=== PATIENT | female | born 1955 | race Caucasian/White ===

== ENCOUNTER 2021-08-22 10:30 | Outpatient (CLI) | payer MEDICARE, BC, SELFPAY ==
--- NOTE | 2021-08-22 10:37 | MM_ITS ---
WS: [id number] BILATERAL DIGITAL SCREENING MAMMOGRAPHY WITH CAD CLINICAL INFORMATION: SCREENING HISTORY: Screening mammogram. No current complaints. COMPARISON: TECHNIQUE: Bilateral CC and MLO views. FINDINGS: The breasts are composed of heterogeneous fibroglandular density tissue, which can limit the detectio n of small underlying mass lesions. A few tiny punctate calcifications. Partially obscured ovoid dens ity upper outer right breast measuring 11 mm. Recommend right diagnostic mammography and ultrasound f or further evaluation. Left breast is unremarkable and unchanged. MM/[place] [id number] IMPRESSION: BI-RADS: 0-Incomplete: Need additional imaging evaluation FOLLOW UP: Need Additional Imaging Recommend right diagnostic mammography and ultrasound for further evaluation.
== END 2021-08-22 10:31 | disposition home or self-care (01) ==
LOC: RADSHAW 10:36
PROVIDERS: PCP Family Medicine; Visit Provider Family Medicine
DX: Z12.31 Encounter for screening mammogram for malignant neoplasm of breast (principal)
CPT/HCPCS: 77067

== ENCOUNTER 2021-09-06 08:20 | Outpatient (CLI) | payer MEDICARE, BC, SELFPAY ==
--- NOTE | 2021-09-06 08:39 | US_ITS ---
WS: [id number] RIGHT DIGITAL MAMMOGRAPHY WITH CAD CLINICAL INFORMATION: RT BREAST DENSITY COMPARISON: August 22, 2021 TECHNIQUE: 3 views of the right breast were obtained. FINDINGS: Scattered fibroglandular densities of the right breast. Partially obscured ovoid density upper outer right breast measuring 11 mm persists on spot compression views but is less well-defined. Ultrasound is pending. ULTRASOUND BREAST RIGHT TECHNIQUE: Ultrasound right breast focused area of concern. CLINICAL INFORMATION: RT BREAST DENSITY FINDINGS: Ultrasound right breast at the 9 to 12:00 position. There are no suspicious cystic or solid lesions. Dense underlying parenchymal tissue. No lesions to correspond to the mammographic findings. US/US breast RT limited* [id number] IMPRESSION: Recommend 6 month follow-up right diagnostic mammography to confirm stability. No corresponding lesions were seen on the ultrasound. BI-RADS: 3-Probably Benign FOLLOW UP: 6 Month Follow-up RECOMMEND 6 MONTH FOLLOW-UP RIGHT DIAGNOSTIC MAMMOGRAPHY AND ULTRASOUND IF PERS ISTENT
== END 2021-09-06 08:21 | disposition home or self-care (01) ==
LOC: RADSHAW 08:22
PROVIDERS: PCP Family Medicine; Visit Provider Family Medicine
DX: R92.8 Other abnormal and inconclusive findings on diagnostic imaging of breast (principal)
CPT/HCPCS: 76642; 77065

== ENCOUNTER 2021-09-16 15:02 | Outpatient (CLI) | payer MEDICARE, BC, SELFPAY ==
--- NOTE | 2021-09-16 15:33 | ECG_ITS ---
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
== END 2021-09-16 15:03 | disposition home or self-care (01) ==
LOC: RT 15:11
PROVIDERS: PCP Family Medicine; Visit Provider Specialist
DX: J38.3 Other diseases of vocal cords (principal)
CPT/HCPCS: 93005

== ENCOUNTER 2022-11-06 10:44 | Emergency (ER) | payer MEDICARE, SELFPAY ==
[2022-11-06] VITALS (11 sets, daily range): BP systolic 108–137; BP diastolic 54–78; PULSE 88–98; RESP 14–20; TEMP 36.7; O2SAT 94–99; BMI 21.6
--- NOTE | 2022-11-06 11:03 | XR_ITS ---
WS: [id number] XR chest 1V portable [id number] REASON FOR EXAM: headache vision changes, hx of cva FINDINGS: Moderate tortuosity and ectasia of the thoracic aorta. Normal heart size. Calcified granulomatous disease bilaterally. Increased reticular interstitial lung opacities in the left lower lung which may be chronic. No definite acute or subacute pulmonary parenchymal or pleural abnormalities. Thoracic scoliosis with mild to moderate degenerative spondylosis. XR/XR chest 1V portable [id number] IMPRESSION: Interstitial lung changes in the left lower lung as above. Appear chronic howev er chronicity is not certain and as clinically warranted follow-up PA and later al chest recommended.
--- NOTE | 2022-11-06 11:03 | CT_ITS ---
WS: [id number] CT HEAD NONCONTRAST HISTORY: headache vision changes, hx of cva TECHNIQUE: Contiguous axial imaging performed through the brain in 2.5 mm imaging. Bone and soft tiss ue windows. Sagittal and coronal reformats reviewed. All CT scans at [facility] use at least one of these dose optimization techniques: automated exposure control; mA and/or kV adjustment per pa tient size (includes targeted exams where dose is matched to clinical indication); or iterative recon struction. DLP: 1083.09 mGy.cm COMPARISON: None available. No acute intracranial hemorrhage, midline shift or mass effect. Mild atrophy and small vessel ischemic disease. Prior lacunar infarct RIGHT basal ganglia. Ventricles: Normal size with no hydrocephalus. No inferior displacement of the cerebellar tonsils. Paranasal sinuses: Mild mucoperiosteal thickening. Small air-fluid level LEFT sphenoid sinus. Mastoid air cells: Well pneumatized. Calvarium and scalp: No fracture. Calcification abuts the RIGHT frontal bone. This may be a calcified meningioma or bony exostosis measuring 10 x 8 mm. Atherosclerotic plaque intracranial carotid arteries. CT/CT head wo con* [id number] IMPRESSION: 1. No acute intracranial hemorrhage. 2. Mild atrophy and small vessel ischemic disease. 3. Small lacunar infarct RIGHT basal ganglia.
--- NOTE | 2022-11-06 11:03 | ED_ITS ---
HPI - Headache General: Chief Complaint: Headache Stated Complaint: SUDDEN HEADACHE/ NAUSEA/ DOUBLE VISION Time Seen by Provider: 11/06/22 10:48 History of Present Illness: Presents to the ER by EMS with complaints of sudden onset right-sided headache and vision changes. Patient reports this started approximately 4 AM today. Patient states her vision is double vision with objects moving in the left and right pattern this is when she looks anywhere other than looking down. When patient looks down she has normal vision. Patient has never had any complaints like this before. Patient has a history of a stroke approximately 10 years ago and is on no anticoagulation. Patient does report the headache worsens with light exposure. MD elicited complaint: headache (Vision changes) Onset (ago): hour(s) (7 hours ago) Onset description: suddenly Location: right Severity: moderate Quality & Timing: aching and constant Exacerbating factors: light Relieving factors: nothing Context: occurred at rest Associated symptoms: Reports photophobia and other (Vision changes); Deny chest pain, fever(s), nausea, rash or vomiting Review of Systems General: Reports: 10 or more systems reviewed and unremarkable except in HPI and below Const: Denies: fever(s) or chills Eyes: Reports: change in vision, blurry vision and photophobia ENMT: Reports: disequilibrium; Denies: throat pain or odynophagia Card: Denies: chest pain, palpitations or irregular heart rhythm Resp: Denies: dyspnea, productive cough or non-productive cough GI: Denies: abdominal pain, nausea or vomiting : Denies: flank pain or dysuria Musc: Denies: neck pain or back pain Skin/Breast: Denies: rash or pruritus Neuro: Reports: headache(s); Denies: numbness in extremities or weakness in extremities Psych: Denies: anxiety or depression Endo: Denies: polyuria or tired all the time Yusef/Lymph: Denies: easy bruising or easy bleeding All/Imm: Denies: urticaria or throat swelling PFSH ED PFSH: Medical History Arthritis Hypercholesteremia Lung nodule TIA (transient ischemic attack) Surgical History History of throat surgery Social History (Reviewed 11/06/22 @ 11:11 by MARYJO Marroquin Smoking and tobacco status: current every day smoker Physical Exam Const: COMMON NORMALS: no acute distress, average body habitus, patient oriented x3, no limitations, healthy appearing, alert and well nourished HENMT: COMMON NORMALS: normocephalic, atraumatic, hearing grossly normal bilaterally, external ears normal, Normal external nose present and moist oral mucous membranes HEAD & SCALP: normocephalic and atraumatic NOSE: Normal external nose present EXTERNAL EAR: Yes external ears normal Eye: COMMON NORMALS: Equal, round and reactive pupils present, EOMs intact bilaterally and conjunctivae normal CONJUNCTIVA: Yes conjunctivae normal PUPIL: Yes Equal, round and reactive pupils present DIRECT OPHTHALMOSCOPY: Yes photophobia Neck/C-Spine: COMMON NORMALS: full ROM, no lymphadenopathy, supple, no menin geal signs, no JVD and Thyroid normal THYROID: Thyroid normal Lymph: LYMPHATIC: no lymphadenopathy noted Chest: COMMONS NORMALS: normal inspection of the chest and normal palpation of entire chest wall Resp: COMMON NORMALS: normal respiratory effort, No retractions, No use of accessory muscles and clear to auscultation bilaterally AUSCULTATION: clear to auscultation bilaterally Cardio: COMMON NORMALS: no JVD, regular rate, regular rhythm, S1 normal heart sound present and S2 normal heart sound present RATE: regular rate RHYTHM: regular rhythm HEART SOUNDS: S1 normal heart sound present and S2 normal heart sound present GI: COMMON NORMALS: Normal to inspection, nondistended, normoactive bowel sounds present, Soft to palpation, non-tender, No hepatosplenomegaly present and no masses PALPATION: Yes Soft to palpation and Yes No hepatosplenomegaly present : COMMON NORMALS: Yes no CVA tenderness BLADDER/KIDNEY EXAM: Yes no CVA tenderness Back/Pelvis: COMMON NORMALS: no CVA tenderness, thoracic and lumbar spine normal to inspection, no thoracic nor lumbar tenderness and thoraco-lumbar ROM normal Extremity: GENERAL: Yes normal exam except as noted Neuro: COMMON NORMALS: patient oriented x3, CN's II-XII intact bilaterally, moves all extremities, no focal motor deficits and no sensory deficits noted SENSORIUM/ORIENTATION: Yes alert MENINGEAL SIGNS: Yes no meningeal signs Psych: COMMON NORMALS: mental status grossly normal, Normal thought process present, cooperative, normal affect, speech normal and activity/motor behavior normal SPEECH: Yes normal speech THOUGHT PROCESS: Normal thought process present Course Vital Signs: Vital signs: Vital Signs Temperature 98.1 F 11/06/22 10:48 Pulse Rate 98 11/06/22 13:30 Respiratory Rate 20 H 11/06/22 13:30 Blood Pressure 108/54 11/06/22 13:30 Pulse Oximetry 97 11/06/22 13:30 Oxygen Delivery Me thod 11/06/22 11:28 MDM - Headache Medical Decision Making Patient presents to the ER with complaints of right-sided headache with vision changes. This started approximately 4 AM today. Patient does not usually have headaches or vision changes like this. Patient took a meclizine this morning for her dizziness with no change. She also took a baby aspirin. Patient has had a history of strokes in the past. Patient had blood work, urinalysis, chest x-ray, and head CT, these were all relatively benign and the findings were discussed with the patient. Patient was given 1 dose of Imitrex IV. Patient states her headache is almost all the way gone and her vision is almost back to normal. Patient states she is ready to go home as long as she can have some but medicine to go home. Patient will be discharged home with instructions to follow-up with her PCP and prop attendant for more thorough eye exam. Differential Diagnosis Likely migraine, tension headache and headache; Unlikely subarachnoid hemorrhage, meningitis, sinusitis or postconcussion syndrome Lab Data 11/06/22 11:00 11/06/22 11:00 Radiology Impressions Chest X-Ray 11/06/22 11:03 IMPRESSION: Interstitial lung changes in the left lower lung as above. Appear chronic however chronicity is not certain and as clinically warranted follow-up PA and lateral chest recommended. Head CT 11/06/22 11:03 IMPRESSION: 1. No acute intracranial hemorrhage. 2. Mild atrophy and small vessel ischemic disease. 3. Small lacunar infarct RIGHT basal ganglia. Laboratory Results WBC 3.6 10^3/uL (4.0-10.0) L 11/06/22 11:00 RBC 4.17 10^6/uL (4.1-5.3) 11/06/22 11:00 Hgb 12.9 g/dL (11.5-15.3) 11/06/22 11:00 Hct 38.9 % (37.0-47.0) 11/06/22 11:00 MCV 93.3 fl (81-99) 11/06/22 11:00 MCH 30.9 pg (28.0-34.0) 11/06/22 11:00 MCHC 33.2 g/dL (30.0-36.0) 11/06/22 11:00 RDW 13.3 % (12.1-15.1) 11/06/22 11:00 Plt Count 171 10^3/cmm (130-400) 11/06/22 11:00 MPV 9.7 fL (7.4-10.4) 11/06/22 11:00 Neut % (Auto) 72.5 % 11/06/22 11:00 Lymph % (Auto) 19.7 % 11/06/22 11:00 [facility] % (Auto) 6.7 % 11/06/22 11:00 Eos % (Auto) 0.8 % 11/06/22 11:00 Baso % (Auto) 0.3 % 11/06/22 11:00 Neut # (Auto) 2.58 10^3/uL (1.8-7.7) 11/06/22 11:00 Lymph # (Auto) 0.7 10^3/uL (0.8-4.8) L 11/06/22 11:00 [facility] # (Auto) 0.2 10^3/uL (0.2-0.9) 11/06/22 11:00 Eos # (Auto) 0.0 10^3/uL (0.0-0.8) 11/06/22 11:00 Baso # (Auto) 0.0 10^3/uL (0.0-0.1) 11/06/22 11:00 Nucleated RBC % (auto) 0 % 11/06/22 11:00 Nucleated RBCs # 0.0 /100WBC 11/06/22 11:00 ESR 7 mm/hr (0-15) 11/06/22 11:00 PT 12.50 SECONDS (12.1-14.9) 11/06/22 11:00 INR 0.91 (0.8-1.2) 11/06/22 11:00 Sodium 133 mmol/L (136-145) L 11/06/22 11:00 Potassium 3.6 mmol/L (3.5-5.1) 11/06/22 11:00 Chloride 99 mmol/L (98-107) 11/06/22 11:00 Carbon Dioxide 23 mmol/L (22-29) 11/06/22 11:00 Anion Gap 14.6 (5-19) 11/06/22 11:00 BUN 10 mg/dL (8-23) 11/06/22 11:00 Creatinine 0.6 mg/dL (0.5-0.9) 11/06/22 11:00 GFR Calculation 99.4 mL/min (90-130) 11/06/22 11:00 Glucose 163 mg/dL (65-115) H 11/06/22 11:00 Calculated Osmolality 279 mOsm/kg (285-295) L 11/06/22 11:00 Calcium 9.0 mg/dL (8.5-10.5) 11/06/22 11:00 Magnesium 1.9 mg/dL (1.7-2.3) 11/06/22 11:00 Total Bilirubin 0.3 mg/dL (0.15-1.2) 11/06/22 11:00 AST 20 U/L (0-32) 11/06/22 11:00 ALT 11 U/L (0-33) 11/06/22 11:00 Alkaline Phosphatase 40 U/L (35-105) 11/06/22 11:00 C-React Prot High Sens < 0.150 mg/dL (0.0-0.3) 11/06/22 11:00 Total Protein 6.7 g/dL (6.6-8.7) 11/06/22 11:00 Albumin 4.2 g/dL (3.5-5.2) 11/06/22 11:00 Globulin 2.5 g/dL (1.3-4.6) 11/06/22 11:00 Urine Color Yellow (Yellow) 11/06/22 12:36 Urine Appearance Clear (CLEAR) 11/06/22 12:36 Urine pH 6 (5-7) 11/06/22 12:36 Ur Specific [place] 1.010 (1.005-1.030) 11/06/22 12:36 Urine Protein Neg (Negative) 11/06/22 12:36 Urine Glucose (UA) Norm (Normal) 11/06/22 12:36 Urine Ketones Negative (Negative) 11/06/22 12:36 Urine Blood Neg (Negative) 11/06/22 12:36 Urine Nitrate Negative (Negative) 11/06/22 12:36 Urine Bilirubin Neg (Negative) 11/06/22 12:36 Urine Urobilinogen Norm mg/dL (Negative) 11/06/22 12:36 Ur Leukocyte Esterase Negative (Negative) 11/06/22 12:36 EKG Data EKG 1: I personally reviewed and interpreted this EKG as follows: EKG interpretation date: 11/06/22 EKG interpretation time: 11:19 Prior EKG tracings: not available for review Interpretation: EKG shows normal sinus rhythm, ventricular rate of 70 bpm, VA interval 181, QRS duration of 89 and a QTc of 399, no ST-T wave changes Discharge Plan Discharge Patient Disposition: Home Clinical Impression: Migraine Qualifiers: Migraine type: ophthalmoplegic Intractability: not intractable Qualified Code(s): G43.B0 - Ophthalmoplegic migraine, not intractable Condition: Stable Prescriptions: New Imitrex 50 mg tablet See Rx Instructions .ROUTE .COMPLEX Qty: 10 0RF Rx Instructions: take 1 tab at onset of headache; if no relief may repeat 1 tab after at least 2 hrs; max = 4 tabs/24 hr No Action Dulera 200-5 mcg/actuation HFA aerosol inhaler 2 puff inhalation BID PRN (Reason: Shortness Of Breath Or Wheezing) budesonide-formoterol [Symbicort] 160-4.5 mcg/actuation HFA aerosol inhaler 2 puff inhalation BID PRN (Reason: Shortness Of Breath Or Wheezing) simvastatin 40 mg tablet 40 mg PO DAILY sulfasalazine 500 mg tablet 1,000 mg PO BID Rx Instructions: give with food (meal/snack) meloxicam 15 mg tablet 15 mg PO DAILY tizanidine 4 mg capsule 4 mg PO TID PRN (Reason: Muscle Spasm) Discharge Orders: Discharge ED (Routine); Ordered 11/06/22 Ordered By: Rambo Padilla Referrals: Florin Crowe MD [Primary Care Provider] - 1 week Discharge Activity: Increase activity as tolerated Patient Instructions: Migraine Headache (ED), Ocular Migraine (ED) Coding Level of Care Code ED Product Support Representative for Chg Wallace
[2022-11-06] MEDS: SUMAtriptan 6 mg/0.5 mL SDV SUBCUT (11:17)
--- NOTE | 2022-11-06 11:19 | ECG_ITS ---
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 Measurements Intervals [place] Rate: 78 P: 151 NV: 181 QRS: 127 QRSD: 89 T: 150 QT: 366 QTc: 418 Interpretive Statements SINUS RHYTHM ARM LEADS REVERSED [INVERTED P AND QRS IN I] Compared to ECG 09/16/2021 15:32:59 No significant changes Electronically Signed On 11-06-2022 13:05:35 CDT by Bakari Barrios M.D. [id number]
[2022-11-06 11:23] LABS: Basophils % 0.3 %; Eosinophils % 0.8 %; Hematocrit 38.9 % (37.0-47.0); Hemoglobin 12.9 g/dL (11.5-15.3); Lymphocytes # 0.7 10^3/uL (0.8-4.8); Lymphocytes % 19.7 %; Mean Corpuscular HGB Conc 33.2 g/dL (30.0-36.0); Mean Corpuscular Hemoglobin 30.9 pg (28.0-34.0); Mean Corpuscular Volume 93.3 fl (81-99); Mean Platelet Volume 9.7 fL (7.4-10.4); Monocytes # 0.2 10^3/uL (0.2-0.9); Monocytes % 6.7 %; Neutrophils # 2.58 10^3/uL (1.8-7.7); Neutrophils % 72.5 %; Nucleated Red Blood Cells % 0 %; Platelet Count 171 10^3/cmm (130-400); Red Blood Count 4.17 10^6/uL (4.1-5.3); Red Cell Distribution Width 13.3 % (12.1-15.1); White Blood Count 3.6 10^3/uL (4.0-10.0)
[2022-11-06 11:26] LABS: Erythrocyte Sedimentation Rate 7 mm/hr (0-15)
[2022-11-06 11:38] LABS: INR 0.91 (0.8-1.2)
[2022-11-06 11:47] LABS: Alanine Aminotransferase 11 U/L (0-33); Albumin Level 4.2 g/dL (3.5-5.2); Alkaline Phosphatase 40 U/L (35-105); Anion Gap 14.6 (5-19); Aspartate Amino Transferase 20 U/L (0-32); Blood Urea Nitrogen 10 mg/dL (8-23); Carbon Dioxide 23 mmol/L (22-29); Chloride 99 mmol/L (98-107); Creatinine Clr Calc Pharmacy 61.3985; Globulin 2.5 g/dL (1.3-4.6); Glomerular Filtration Rate 99.4 mL/min (90-130); Glucose 163 mg/dL (65-115); Magnesium 1.9 mg/dL (1.7-2.3); Osmolality Calculated 279 mOsm/kg (285-295); Potassium 3.6 mmol/L (3.5-5.1); Sodium 133 mmol/L (136-145); Total Bilirubin 0.3 mg/dL (0.15-1.2); Total Protein 6.7 g/dL (6.6-8.7)
[2022-11-06 12:19] LABS: CRP High Sensitivity Cardiac < 0.150 mg/dL (0.0-0.3)
[2022-11-06 12:40] LABS: Add Urine Microscopic? NO; Charge for UA Resulting for Rev
[2022-11-06 13:00] LABS: Urine Color Yellow (Yellow)
[2022-11-06 13:01] LABS: Bilirubin Urine Neg (Negative); Blood Urine Neg (Negative); Glucose Urine UA Norm (Normal); Ketones Urine Negative (Negative); Leukocyte Esterase Urine Negative (Negative); Nitrate Urine Negative (Negative); Protein Urine Neg (Negative); Urine Appearance Clear (CLEAR); Urobilinogen Urine Norm (Negative); pH Urine 6 (5-7)
== END 2022-11-06 13:31 | disposition home or self-care (01) ==
PROVIDERS: Emergency Provider Emergency Medicine; PCP Family Medicine
DX: G43.B0 Ophthalmoplegic migraine, not intractable (principal); Z86.73 Personal history of transient ischemic attack (TIA), and cerebral infarction without residual deficits; F17.210 Nicotine dependence, cigarettes, uncomplicated
CPT/HCPCS: 70450; 71045; 80053; 81003; 83735; 85025; 85610; 85651; 86141; 93005; 96372; 99285; J3030

== ENCOUNTER → 2022-12-14 12:57 | Outpatient (BNVA) | payer MEDICARE, SELFPAY | PROVIDERS: PCP Family Medicine; Visit Provider Dermatology | DX: L57.0 Actinic keratosis (principal); L81.4 Other melanin hyperpigmentation; L57.8 Other skin changes due to chronic exposure to nonionizing radiation; L82.1 Other seborrheic keratosis | CPT/HCPCS: 17000; 17003; 99213 ==

== ENCOUNTER 2023-05-17 14:12 | Outpatient (CLI) | payer MEDICARE, SELFPAY ==
--- NOTE | 2023-05-17 14:18 | XR_ITS ---
WS: [id number] DEXA (DUAL ENERGY X-RAY ABSORPTIOMETRY) Bone mineral density was performed using a [employer] machine. HISTORY: POSTMENOPAUSAL COMPARISON: None available. Left forearm BMD: 0.748 g/cm2. T score: -1.5 Z score: 0.3 Total hip BMD: Left: 0.788 g/cm2. T score: -1.7 Z score: -0.4 Right: 0.792 g/cm2. T score: -1.7 Z score: -0.4 10 year probability of a major osteoporotic fracture is 20.3%. IMPRESSION: OSTEOPENIA based upon the WHO classification for females.
== END 2023-05-17 14:13 | disposition home or self-care (01) ==
PROVIDERS: PCP Family Medicine; Visit Provider Nurse Practitioner Family
DX: Z78.0 Asymptomatic menopausal state (principal); M85.80 Other specified disorders of bone density and structure, unspecified site
CPT/HCPCS: 77080

== ENCOUNTER → 2023-05-29 09:44 | Outpatient (BNVA) | payer MEDICARE, SELFPAY | PROVIDERS: PCP Family Medicine; Visit Provider Physician Assistant | DX: M19.041 Primary osteoarthritis, right hand; M19.042 Primary osteoarthritis, left hand | CPT/HCPCS: 73130; 99203 ==

== ENCOUNTER → 2023-06-18 12:46 | Outpatient (BNVA) | payer MEDICARE, SELFPAY | PROVIDERS: PCP Family Medicine; Visit Provider Dermatology | DX: L57.0 Actinic keratosis (principal); L81.4 Other melanin hyperpigmentation; L57.8 Other skin changes due to chronic exposure to nonionizing radiation; L82.1 Other seborrheic keratosis; D22.39 Melanocytic nevi of other parts of face | CPT/HCPCS: 17000; 17110; 99213 ==

== ENCOUNTER → 2023-06-22 10:41 | Outpatient (BNVA) | payer MEDICARE, SELFPAY | PROVIDERS: PCP Family Medicine; Visit Provider Student in an Organized Health Care Education/Training Program | DX: M19.041 Primary osteoarthritis, right hand (principal); M19.042 Primary osteoarthritis, left hand | CPT/HCPCS: 99214 ==

== ENCOUNTER 2023-08-15 10:02 | Day surgery (SDC) | payer MEDICARE, SELFPAY ==
[2023-08-15] VITALS (10 sets, daily range): BP systolic 110–175; BP diastolic 70–106; PULSE 70–102; RESP 16–18; TEMP 36.1–36.6; O2SAT 94–99; BMI 25.0
--- NOTE | 2023-08-15 | XR_ITS ---
WS: [email or web address] XR finger RT min 2V [id number] REASON FOR EXAM: right thumb distal interphalangeal arthrodesis, or pic FINDINGS: Longitudinal and screw arthrodesis of the DIP joint of the right thumb. The surgical appliances intact and in proper position and alignment. Arthrodesis is in proper alignment. IMPRESSION: Arthrodesis of the DIP joint of the right thumb.
--- NOTE | 2023-08-15 10:54 | ECG_ITS ---
[facility] Test Date: 2023-08-15 Pat Name: Heidi Shafer Department: Room: Gender: Female Rn Outpatient Surgery: : 1955 Requested By: Melony Centeno Order Number: [id number] Zoltan MD: Bakari Barrios M.D. Measurements Intervals [place] Rate: 73 P: 68 MD: 171 QRS: 27 QRSD: 90 T: 58 QT: 397 QTc: 440 Interpretive Statements SINUS RHYTHM Compared to ECG 11/06/2022 11:19:44 No significant changes Electronically Signed On 08-15-2023 19:00:23 PRIMER CHARGER by Bakari Barrios M.D. [email or web address] [id number]
[2023-08-15] MEDS: albuterol 2.5 mg/3 mL Neb INHALATION (11:00)
[2023-08-15] MEDS: ipratropium 0.5 mg/2.5 mL Neb INHALATION (11:00)
[2023-08-15] MEDS: acetaminophen 1,000 MG/100 ML PIGGYBACK 400 MG IV (11:08)
--- NOTE | 2023-08-15 11:09 | ANES.PREANE2 ---
Pre-Anesthetic Assessment Height/Weight: Height 1.65 m Weight 68.039 kg Temp Pulse Resp BP Pulse Ox O2 Del Method 97.7 F 70 16 122/70 94 Room Air 08/15/23 10:44 08/15/23 11:04 08/15/23 10:50 08/15/23 10:44 08/15/23 10:50 08/15/23 10:50 Operation Date: 08/15/23 12:05 Proposed Procedures p Right Thumb Distal Interphalangeal Arthrodesis Hand(Right) - Remy Screven, DO Was Beta Kenton taken within 24 hours: N/A Was Clonidine taken within 24 hours: N/A Last intake: Intake Last Liquid Date 08/14/23 Last Liquid Time 19:00 Last Solid Date 08/14/23 Last Solid Time 18:00 Exam alert and oriented x 3 Airway Submandibular: within normal limits Cervical ROM: within normal limits Mallampati: Class II Dentition: other Comments: Comments: Implants, prefers to keep them in place History/ROS No significant history except as noted and No significant complaints Pulmonary Chronic Obstructive Pulmonary Disease Metabolic Hyperlipidemia Anesthetic Plan ASA status: 2 Anesthesia: General Risk of > 500 ml blood loss (7ml/kg in children): No Medications/Allergies Home Medications Medication Instructions Recorded Confirmed Last Taken Type budesonide-formoterol HFA 160 2 puff inhalation BID PRN 10/27/21 08/14/23 Unknown History mcg-4.5 mcg/actuation aerosol Shortness Of Breath Or Wheezing inhaler (Symbicort) simvastatin 40 mg tablet 40 mg PO DAILY 10/27/21 08/14/23 08/14/23 History sulfasalazine 500 mg tablet 1,000 mg PO BID 10/27/21 08/14/23 08/14/23 History meloxicam 15 mg tablet 15 mg PO DAILY 11/06/22 08/14/23 08/14/23 History tizanidine 4 mg capsule 4 mg PO TID PRN Muscle Spasm 11/06/22 08/14/23 08/14/23 History clobetasol 0.05 % scalp solution 1 applic topical BID 2 weeks #50 mL 11/07/22 08/14/23 08/14/23 Rx imiquimod 5 % topical cream packet 1 applic topical ONCE #24 ea 11/14/22 08/15/23 08/14/23 Rx cholecalciferol (vitamin D3) 125 125 mcg PO DAILY 05/29/23 08/14/23 08/14/23 History mcg (5,000 unit) capsule magnesium oxide 400 mg PO DAILY 05/29/23 08/14/23 08/14/23 History meclizine 25 mg tablet 25 mg PO DAILY PRN Dizziness 05/29/23 08/15/23 08/15/23 History prednisone 20 mg tablet 20 mg PO DAILY 05/29/23 08/15/23 08/14/23 History Allergies Allergy/AdvReac Type Severity Reaction Status Date / Time No Known Drug Allergies Allergy none Verified 08/14/23 11:53 [facility] Anesthesia Medical History Arthritis Hypercholesteremia Lung nodule TIA (transient ischemic attack) Surgical History History of throat surgery Social History Smoking and tobacco/nicotine status: current every day tobacco/nicotine user Data Anesthesia Cardiac Studies: No Data to Display
[2023-08-15] MEDS: sodium chloride 0.9% 1,000 ML 30 ML IV (11:10)
[2023-08-15] MEDS: ketorolac 30 mg/mL INJ IVP (11:17)
--- NOTE | 2023-08-15 11:36 | W.PM.OPSFHP ---
Same Day Surgery H&P Indication for Procedure/HPI DATE OF PROCEDURE: August 15, 2023 CHIEF COMPLAINT/INDICATIONFOR SURGICAL PROCEDURE: Right thumb IP joint arthritis and deformity PREOP DIAGNOSIS: Right thumb IP joint arthritis and deformity PLANNED PROCEDURE: Operation Date: 08/15/23 12:05 Proposed Procedures p Right Thumb Distal Interphalangeal Arthrodesis Hand(Right) - Remy Noe DO Medications/Allergies* Home Medications Medication Instructions Recorded Confirmed Type budesonide-formoterol HFA 160 2 puff inhalation BID PRN 10/27/21 08/14/23 History mcg-4.5 mcg/actuation aerosol Shortness Of Breath Or Wheezing inhaler (Symbicort) simvastatin 40 mg tablet 40 mg PO DAILY 10/27/21 08/14/23 History sulfasalazine 500 mg tablet 1,000 mg PO BID 10/27/21 08/14/23 History meloxicam 15 mg tablet 15 mg PO DAILY 11/06/22 08/14/23 History tizanidine 4 mg capsule 4 mg PO TID PRN Muscle Spasm 11/06/22 08/14/23 History cholecalciferol (vitamin D3) 125 125 mcg PO DAILY 05/29/23 08/14/23 History mcg (5,000 unit) capsule magnesium oxide 400 mg PO DAILY 05/29/23 08/14/23 History meclizine 25 mg tablet 25 mg PO DAILY PRN Dizziness 05/29/23 08/15/23 History prednisone 20 mg tablet 20 mg PO DAILY 05/29/23 08/15/23 History Allergies/Adverse Reactions Allergy/AdvReac Type Severity Reaction Status Date / Time No Known Drug Allergies Allergy none Verified 08/14/23 11:53 Current Medications: Generic Name Dose Route Start Last Admin Trade Name Freq PRN Reason Stop Dose Admin Sodium Chloride 1,000 mls @ 30 mls/hr 08/15/23 10:30 08/15/23 11:10 Sodium Chloride 0.9% IV 08/16/23 10:29 30 mls/hr .Q24H BERTO Administration Pertinent History/Comorbid Conditions* Medical History (Updated 05/29/23 @ 10:34 by LEXUS Boyce) Lung nodule TIA (transient ischemic attack) Arthritis Hypercholesteremia Surgical History (Updated 10/31/21 @ 16:50 by Renae Raphael DO) History of throat surgery Social History Smoking and tobacco/nicotine status: current every day tobacco/nicotine user Pertinent Exam Findings alert, oriented x 3, operative site marked and procedure specific exam findings Hands-Patient has significant osteoarthritis of both hands. no erythema or warmth of joints or fingers. Patient has tenderness of the DIP joints on thumb and fifth digit of finger. She has deformity of distal phalanx on right thumb that appears dislocated And angled 90 degrees. Joint is able to be near reducibly and straight clinically on exam. And bony prominence first digit metacarpal. fingers are warm and well-perfused. Recommendations Surgery/Procedure today Other Plans: Plan to proceed to the OR today for right thumb IP joint arthrodesis. Patient understands and Zetts procedure risk benefits complication alternatives surgery and through shared decision-making elects proceed with surgical intervention all questions answered. Coding Level of Care Code Acute Code for Kb Fwandres
[2023-08-15] MEDS: midazolam 1 mg/mL INJ 2 mL 2 MG IVP (12:52)
[2023-08-15] MEDS: ceFAZolin 2,000 MG in sodium chloride 0.9% (plus) 50 ML 100 MG IV (13:34)
[2023-08-15] MEDS: ROPivacaine 0.5% SDV 30 mL 25 MG INJECTION (14:39)
[2023-08-15] MEDS: lidocaine 2% INJ 20 mL INJECTION (14:39)
--- NOTE | 2023-08-15 15:02 | W.PM.BPON ---
Date of Procedure: 08/15/2023 Surgeon: Remy Noe DO Patient Case Manager(s): Andi Noe PA-C Procedure(s) performed: Right thumb interphalangeal joint arthrodesis Findings of the procedure(s): [Patient found to have significant joint arthritis of the right thumb interphalangeal joint with significant 90 degree deformity, patient underwent procedure as planned without complications.] Estimated blood loss: 5 mL Specimen(s) removed: None Post-operative diagnosis: Right thumb IP joint severe degenerative joint disease/arthritis and 90 degrees deformity
--- NOTE | 2023-08-15 15:05 | PM.PACU ---
PACU note Narrative: Patient is a 67-year-old female just underwent a right thumb interphalangeal arthrodesis patient transferred to PACU in stable condition. Pain is well controlled. Dressing and splint on hand is dry and in place. Patient's fingers are warm and well-perfused and checked before splint was put on. Patient can wiggle fingers. normal cap refill under 2 seconds. Patient has normal elbow range of motion. Unable to assess sensation due to residual localized anesthetic. Exam: awake Disposition: discharged
--- NOTE | 2023-08-15 15:06 | P.OP_ITS ---
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 Anesthesia: General (LMA) Estimated blood loss: 5 mL 43 minutes IV fluids: 700 mL Complications: None Findings: See operative report narrative Condition: stable Disposition: same day Brief History: Patient seen and worked up in the outpatient setting she has significant arthritis of her hands with a 90 degree deformity and severe arthritis of the right thumb interphalangeal joint talked about her treatment options far as nonoperative and operative invention. Through shared decision making given she is failed conservative treatment is starting to affect her daily life and function she like to undergo surgical intervention recommend a right thumb interphalangeal joint arthrodesis. She understands the ins and outs procedure risk benefits complication alternatives surgery through shared decision make elects proceed with surgical intervention. All questions answered. Procedure: Patient seen eval in the preoperative holding area. Consent was reviewed and signed with patient correct extremity and digit was marked she was seen evaluate by anesthesia preoperatively and was cleared for surgery she was taken back to the operative suite [facility]. Armboard was applied to the right upper extremity. Patient then subsequently underwent anesthesia per the anesthesia part once properly anesthetized she was apparently well-padded and secured to the bed. Nonsterile tourniquet applied to the right upper arm. She then subsequently was prepped and draped the right upper extremity in standard orthopedic fashion. Final timeout performed. Patient received appropriate preoperative antibiotics. A sterile digital block was then subsequently performed of the right thumb as a digital block for anesthetic and postoperative pain. Esmarch tourniquet was used exsanguinate right upper extremity and tourniquet was insufflated to 250 mmHg. First brought in mini C arm to evaluate the thumb IP joint this is not completely reducible and still had radial deviation as result plan was to make an eponychial curved incision over the bony prominence of the proximal phalanx. This curvilinear incision was made through skin only and then switched to Littler dissection scissors and dissected full-thickness skin flaps. Sharp scalpel incision was made to mobilize on the radial and ulnar aspects of the extensor tendon I then appropriately released the collaterals in sequential fashion protected neurovascular structures throughout my dissection. I then subsequently made an arthrotomy and identified the distal interphalangeal joint. This point in time my assistant executive housekeeper held retractors to protect the proximal phalanx and I utilized some microsagittal saw and subsequently created a flat surface with slight flexion of the proximal phalanx to accommodate and prepped the bone surface for arthrodesis. Next I utilized a curette as well as a rongeur and fenestrated multiple holes of the distal phalanx to prep the distal phalanx for arthrodesis. I then subsequently utilized the mini C arm to verify appropriate 5-10 degrees of flexion of the IP joint for appropriate position perfusing. Small adjustments and bone fragments were subsequently excised to accommodate for appropriate 5 to 10 degrees of flexion for the arthrodesis. I then subsequently advanced K wire across the distal interphalangeal joint of the proximal phalanx maintaining my reduction appropriate bony apposition with holding the finger in straight alignment with no clinical radiographic deviation radially or ulnarly. Once confirmed my K wire was in appropriate position and site was prepped for arthrodesis with appropriate joint preparation I then subsequently took appropriate measurement 38 mm was noted for the appropriate length screw with a 2.5 mm Arthrex headless compression screw. I then subsequently drilled and then placed a 38 mm x 2.5 mm Arthrex headless compression screw with excellent fixation and compression with appropriate maintenance of reduction and joint compression across the interphalangeal joint. This point time the K wire subsequently removed. Subsequently utilized Crucell DBM putty at the site of the arthrodesis to encourage bony fusion. Finger was then subsequently ranged through motion and had excellent fixation at the DIP joint with supple motion at the adjacent joints of the right thumb. Tourniquet was deflated hemostasis was satisfactory patient had brisk capillary refill of the right thumb. I then subsequently excised some of patient's excessive skin edges given the chronic deformity that she had had initial the skin edges were then reapproximated with interrupted nylon suture. Patient was then dressed with Xeroform 4 x 4's Curlex soft roll and a thumb spica splint was applied. She was awakened from anesthesia and taken back in stable condition. Disposition: Patient taken back in stable condition recovering well pain controlled. Will maintain thumb spica splint until follow-up. Follow-up in 2 weeks to receive appropriate discharge structure as well as pain medication. Patient understands agrees with current plan. Questions answered.
--- NOTE | 2023-08-16 07:25 | ANE.PACU2 ---
Inpatient post-anesthesia follow up: Airway intact: Yes Vital signs: Temperature 98 F Pulse Rate 88 Respiratory Rate 17 Blood Pressure 168/90 Pulse Oximetry 98 Oxygen Delivery Me thod Room Air Oxygen Flow Rate Fraction of Inspir ed Oxygen Hydration adequate: Yes Nausea and vomiting: No Pain level: 3 Mental status: Baseline
== END 2023-08-15 16:20 | disposition home or self-care (01) ==
PROVIDERS: PCP Family Medicine; Visit Provider Student in an Organized Health Care Education/Training Program
PROC: (CPT 26860; principal; 2023-08-15 12:05)
DX: M13.841 Other specified arthritis, right hand (principal); J44.9 Chronic obstructive pulmonary disease, unspecified; E78.5 Hyperlipidemia, unspecified; E78.00 Pure hypercholesterolemia, unspecified; Z86.73 Personal history of transient ischemic attack (TIA), and cerebral infarction without residual deficits; F17.210 Nicotine dependence, cigarettes, uncomplicated
CPT/HCPCS: 26860; 73140; 76000; 93005; 94640; C1713; C1734; J0131; J0690; J1885; J2250; J2704; J2795; J3010; J3490; J7030; J7613; J7644

== ENCOUNTER 2023-08-28 06:00 | Outpatient (CLI) | payer MEDICARE, SELFPAY | END 2023-08-28 06:01 | LOC: SOT 08-29 10:33 | PROVIDERS: Visit Provider Physician Assistant | DX: Z47.89 Encounter for other orthopedic aftercare (principal) | CPT/HCPCS: 97760; 99024; L3925 ==

== ENCOUNTER → 2023-08-28 11:17 | Outpatient (BNVA) | payer MEDICARE, SELFPAY | PROVIDERS: PCP Family Medicine; Visit Provider Physician Assistant | DX: Z98.890 Other specified postprocedural states (principal); M19.041 Primary osteoarthritis, right hand; M19.042 Primary osteoarthritis, left hand; Z47.89 Encounter for other orthopedic aftercare | CPT/HCPCS: 73130; 97760; 99024; L3925 ==

== ENCOUNTER → 2023-10-09 13:46 | Outpatient (BNVA) | payer MEDICARE, SELFPAY | PROVIDERS: Visit Provider Student in an Organized Health Care Education/Training Program | DX: M19.041 Primary osteoarthritis, right hand (principal); M19.042 Primary osteoarthritis, left hand | CPT/HCPCS: 73130; 99213 ==

== ENCOUNTER → 2023-12-17 11:09 | Outpatient (BNVA) | payer MEDICARE, SELFPAY | PROVIDERS: Visit Provider Nurse Practitioner Family | DX: D48.5 Neoplasm of uncertain behavior of skin (principal); L81.4 Other melanin hyperpigmentation; L82.1 Other seborrheic keratosis; D22.39 Melanocytic nevi of other parts of face; L82.0 Inflamed seborrheic keratosis; L57.0 Actinic keratosis | CPT/HCPCS: 11102; 17000; 99213 ==

== ENCOUNTER → 2024-01-16 11:21 | Outpatient (BNVA) | payer MEDICARE, SELFPAY | PROVIDERS: Visit Provider Dermatology | DX: L57.0 Actinic keratosis (principal) | CPT/HCPCS: 96573 ==

== ENCOUNTER → 2024-02-20 07:51 | Outpatient (BNVA) | payer MEDICARE, SELFPAY | PROVIDERS: Visit Provider Dermatology | DX: L57.0 Actinic keratosis (principal) | CPT/HCPCS: 96573; J7308 ==

== ENCOUNTER → 2024-05-22 08:44 | Outpatient (BNVA) | payer MEDICARE, SELFPAY | PROVIDERS: Visit Provider Nurse Practitioner Family | DX: L57.0 Actinic keratosis (principal); I78.8 Other diseases of capillaries; L81.4 Other melanin hyperpigmentation; L57.8 Other skin changes due to chronic exposure to nonionizing radiation | CPT/HCPCS: 17000; 99213 ==

== ENCOUNTER → 2024-06-12 14:39 | Outpatient (BNVA) | payer MEDICARE, SELFPAY | PROVIDERS: PCP Family Medicine; Visit Provider Orthopaedic Surgery | DX: M54.9 Dorsalgia, unspecified (principal) | CPT/HCPCS: 72072; 99204 ==

== ENCOUNTER 2024-06-16 14:39 | Outpatient (CLI) | payer MEDICARE, SELFPAY ==
--- NOTE | 2024-06-16 15:15 | MR_ITS ---
WS: [id number] MRI THORACIC SPINE WITHOUT CONTRAST TECHNIQUE: Sagittal T1, T2 and STIR imaging. Axial T2 imaging. Noncontrast imaging obtained. CLINICAL INFORMATION: compression fx thoracic COMPARISON: None. FINDINGS: Counting performed from the craniocervical junction 6 6 Mild thoracic curve. Moderate thoracic kyphosis. Compression fracture T7 vertebral body with anterior wedging. Loss of approximately 40% vertebral body height. Fracture cleft in the mid vertebral body e xtending to the superior endplate and posterior cortex. No significant retropulsion. Small amount of edema extending into the LEFT greater than RIGHT pedicles. Pedicles appear intact. Tiny LEFT paracent ral protrusion T7-T8. Spinal canal is patent. Cord signal is normal. No high-grade central canal stenosis. Chronic disc bulging in the lower thorac ic and upper lumbar spine worse at T12-L1 and L1-L2 with disc desiccation. Moderate facet arthropathy lower thoracic spine. Normal caliber visualized thoracic aorta. Osteopenia. MR/MR thoracic spin wo con* [id number] IMPRESSION: 1. Acute compression T7 vertebral body with fracture cleft visualized in the s uperior endplate extending into the posterior cortex. Loss of approximately 40% vertebral body height with edema. No significant retropulsion. 2. Small LEFT paracentral protrusion T7-T8. Spinal canal is patent. 3. No other acute appearing compression fractures. 4. Moderate spondylitic changes thoracic spine with moderate thoracic kyphosis .
== END 2024-06-16 14:40 | disposition home or self-care (01) ==
LOC: RAD 14:39
PROVIDERS: PCP Family Medicine; Visit Provider Orthopaedic Surgery
DX: S22.060A Wedge compression fracture of T7-T8 vertebra, initial encounter for closed fracture (principal); M51.24 Other intervertebral disc displacement, thoracic region; M47.814 Spondylosis without myelopathy or radiculopathy, thoracic region; X58.XXXA Exposure to other specified factors, initial encounter
CPT/HCPCS: 72146

== ENCOUNTER → 2024-06-19 08:13 | Outpatient (BNVA) | payer MEDICARE, SELFPAY | PROVIDERS: PCP Family Medicine; Visit Provider Orthopaedic Surgery | DX: Z01.818 Encounter for other preprocedural examination (principal); Z09 Encounter for follow-up examination after completed treatment for conditions other than malignant neoplasm | CPT/HCPCS: 36415; 80053; 81001; 85025; 99214 ==

== ENCOUNTER → 2024-06-23 07:57 | Day surgery (SDC) | payer MEDICARE, SELFPAY ==
[2024-06-23] VITALS (10 sets, daily range): BP systolic 113–136; BP diastolic 46–76; PULSE 81–99; RESP 17–20; TEMP 36.3–36.7; O2SAT 92–100; BMI 25.7
[2024-06-23] MEDS: sodium chloride 0.9% 1,000 ML 30 ML IV (08:32)
--- NOTE | 2024-06-23 08:36 | ANES.PREANE2 ---
Pre-Anesthetic Assessment Height/Weight: Height 1.63 m Weight 68.039 kg Temp Pulse Resp BP Pulse Ox O2 Del Method 97.3 F L 99 18 132/76 96 Room Air 06/23/24 08:26 06/23/24 08:26 06/23/24 08:26 06/23/24 08:26 06/23/24 08:26 06/23/24 08:26 Preop Diagnosis: T7 wedge osteoporotic traumatic compression fracture Operation Date: 06/23/24 10:00 Proposed Procedures p Kyphoplasty(Not Applicable) - Philip Hutson DO Familial anesthetic complications: none Was Beta Kenton taken within 24 hours: N/A Was Clonidine taken within 24 hours: N/A Last intake: Intake Last Liquid Date 06/22/24 Last Liquid Time 21:00 Last Solid Date 06/22/24 Last Solid Time 18:30 Social Tobacco and No alcohol Exam alert, oriented x 3, clear to auscultation bilaterally and regular rate & rhythm Airway Mallampati: Class II Dentition: other (implants) Pulmonary Chronic Obstructive Pulmonary Disease Anesthetic Plan ASA status: 2 Anesthesia: General Risk of > 500 ml blood loss (7ml/kg in children): No Medications/Allergies Home Medications Medication Instructions Recorded Confirmed Last Taken Type simvastatin 40 mg tablet 40 mg PO DAILY 10/27/21 06/19/24 06/22/24 History sulfasalazine 500 mg tablet 1,000 mg PO BID 10/27/21 06/19/24 06/22/24 History meloxicam 15 mg tablet 15 mg PO DAILY 11/06/22 06/19/24 06/22/24 History tizanidine 4 mg capsule 4 mg PO TID PRN Muscle Spasm 11/06/22 06/19/24 06/22/24 History clobetasol 0.05 % scalp solution 1 applic topical BID 2 weeks #50 mL 11/07/22 06/19/24 08/14/23 Rx cholecalciferol (vitamin D3) 125 125 mcg PO DAILY 05/29/23 06/19/24 06/22/24 History mcg (5,000 unit) capsule magnesium oxide 400 mg PO DAILY 05/29/23 06/19/24 06/22/24 History meclizine 25 mg tablet 25 mg PO DAILY PRN Dizziness 05/29/23 06/19/24 08/15/23 History Custom Fabricated Splint #1 ea 08/28/23 06/19/24 Unknown Rx alendronate 70 mg tablet 70 mg PO DIRECTED 06/19/24 06/23/24 Unknown History Allergies Allergy/AdvReac Type Severity Reaction Status Date / Time No Known Drug Allergies Allergy none Verified 06/23/24 08:14 Current Medications Generic Name Dose Route Start Last Admin Trade Name Freq PRN Reason Stop Dose Admin Sodium Chloride 1,000 mls @ 30 mls/hr 06/23/24 08:15 06/23/24 08:32 Sodium Chloride 0.9% IV 06/24/24 08:14 30 mls/hr .Q24H BERTO Administration PFSH Anesthesia Medical History Lung nodule TIA (transient ischemic attack) Arthritis Hypercholesteremia Surgical History History of throat surgery Social History Smoking and tobacco/nicotine status: current every day tobacco/nicotine user Data Anesthesia Cardiac Studies: No Data to Display
--- NOTE | 2024-06-23 08:41 | W.PM.OPSUD ---
Surgery/Procedure H&P Update DATE OF PROCEDURE: June 23, 2024 DATE H&P PERFORMED: 06/19/24 H&P UPDATE INFORMATION: I have reviewed H&P completed within last 30 days, I have examined patient prior to procedure and No changes to prior documentation PREOP DIAGNOSIS: T7 wedge osteoporotic traumatic compression fracture PLANNED PROCEDURE: Operation Date: 06/23/24 10:00 Proposed Procedures p Kyphoplasty(Not Applicable) - Philip Hutson DO
[2024-06-23] MEDS: ceFAZolin 2,000 mg SDV 2000 MG IVP (09:12)
[2024-06-23] MEDS: lidocaine-epi 1% 20 mL INJ INJECTION (09:50)
--- NOTE | 2024-06-23 10:05 | PM.OP ---
Operative Report Date of procedure: June 23, 2024 Pre-op diagnosis: T7 traumatic osteoporotic wedge compression fracture Post-op diagnosis: same Procedure done: T7 kyphoplasty Surgeon: Philip Hutson DO Estimated blood loss (mL): 5 Procedure: T7 kyphoplasty Patient brought the op suite after undergoing anesthesia patient was placed in the prone position. All his impingement well-padded. Patient's prepped and draped in also fashion. Skin incision was made over the lateral edge of the pedicle on the left side. This is confirmed under C-arm guidance. This is done at the T7 level. The initial awl was placed through the pedicle. This confirmed on AP lateral views. Next the drill was inserted. Followed by the balloon. The balloon was inflated. The balloon was then deflated and removed. Cement was then placed in 4 of the vertebral body. Both AP lateral showed the cement was in good position. Wounds irrigated and closed with nylon stitch. Sterile dressings were applied patient transferred to the PACU in stable condition.
--- NOTE | 2024-06-23 11:05 | ANE.PACU2 ---
Inpatient post-anesthesia follow up: Airway intact: Yes Vital signs: Temperature 97.6 F Pulse Rate 83 Respiratory Rate 18 Blood Pressure 115/73 Pulse Oximetry 92 Oxygen Delivery Me thod Room Air Oxygen Flow Rate 6 Fraction of Inspir ed Oxygen Hydration adequate: Yes Nausea and vomiting: No Pain level: 1 Mental status: Baseline
== END | disposition home or self-care (01) ==
PROVIDERS: PCP Family Medicine; Visit Provider Orthopaedic Surgery
PROC: (CPT 22513; principal; 2024-06-23 09:40)
DX: S22.060A Wedge compression fracture of T7-T8 vertebra, initial encounter for closed fracture (principal); X58.XXXA Exposure to other specified factors, initial encounter; J44.9 Chronic obstructive pulmonary disease, unspecified; Z86.73 Personal history of transient ischemic attack (TIA), and cerebral infarction without residual deficits; F17.200 Nicotine dependence, unspecified, uncomplicated; E78.00 Pure hypercholesterolemia, unspecified
CPT/HCPCS: 22513; 76000; J0690; J1100; J2250; J2405; J2704; J3010; J3490; J7030

== ENCOUNTER → 2024-07-10 14:27 | Outpatient (BNVA) | payer MEDICARE, SELFPAY | PROVIDERS: PCP Family Medicine; Visit Provider Orthopaedic Surgery | DX: S22.069A Unspecified fracture of T7-T8 vertebra, initial encounter for closed fracture (principal); X58.XXXA Exposure to other specified factors, initial encounter | CPT/HCPCS: 72072; 99024 ==

== ENCOUNTER 2024-08-13 09:38 | Outpatient (CLI) | payer MEDICARE, SELFPAY ==
--- NOTE | 2024-08-13 09:52 | CT_ITS ---
WS: [id number] CT NECK WITH CONTRAST HISTORY: MASS OF NECK TECHNIQUE: Contiguous 2 mm axial images are performed through the neck with intravenous contrast. Sag ittal and coronal reformats are also submitted. All CT scans at [facility] use at least one o f these dose optimization techniques: automated exposure control; mA and/or kV adjustment per patient size (includes targeted exams where dose is matched to clinical indication); or iterative reconstruc tion. CONTRAST: CONTRAST: Omnipaque 350; 100 mL IV. DLP: 139.56 mGy.cm COMPARISON: 07/21/2009, soft tissue ultrasound 07/17/2024 Palpable marker is placed along the LEFT lateral neck at the site of palpable abnormality. This mass corresponds to a cervical chain mixed density mass with cystic and solid components. Mass measures 1. 8 x 2.0 cm and is just deep to the external jugular vein and superficial to the carotid artery. No de finite connection to the salivary gland. There are additional abnormal lymph nodes, some of which ar e necrotic along the LEFT cervical chain. Level 1B lymph node on the LEFT measures 1.0 cm and is hype rvascular. RIGHT cervical chain subcentimeter lymph nodes. Nasopharynx, oropharynx, hypopharynx and larynx are unremarkable. No soft tissue masses or abnormal e nhancement. Torus tubarius and fossa of Rosenmuller and parapharyngeal fat are normal. Thyroid gland and salivary glands are normally enhancing with no masses. Degenerative curvature and increased lordosis. Visualized portions of the skull base demonstrate no abnormalities. Orbits and globes are within norm al limits. No soft tissue masses. Visualized paranasal sinuses and mastoid air cells are normal. Lung apices are clear. CT/CT neck w con* [id number] IMPRESSION: 1. LEFT cervical chain lymphadenopathy. The palpable mass corresponds to an ab normal lymph node measuring 1.8 x 2.0 cm at level 2A. Additional enlarged hyper vascular lymph nodes at level 1B and 2B on the LEFT. Smaller lymph nodes along the RIGHT cervical chain but not hypervascular or significantly enlarged. Source of the lymphadenopathy is not evident. No soft tissue mass identified. S urgical excision or biopsy of the largest lymph node may be necessary. Lymph no de is neoplastic until proven otherwise. 2. No laryngeal mass is identified. Occult neoplasm needs to be excluded. Rey mmend direct visualization. Recommend follow-up with ENT.
[2024-08-13] MEDS: iohexol 350 mg/mL 500 mL Btl (per mL) IV (10:17)
== END 2024-08-13 09:39 | disposition home or self-care (01) ==
PROVIDERS: PCP Family Medicine; Visit Provider Nurse Practitioner Family
DX: R22.1 Localized swelling, mass and lump, neck (principal); M43.9 Deforming dorsopathy, unspecified; M40.50 Lordosis, unspecified, site unspecified
CPT/HCPCS: 70491

== ENCOUNTER → 2024-08-19 07:56 | Outpatient (BNVA) | payer MEDICARE, SELFPAY | PROVIDERS: PCP Family Medicine; Visit Provider Orthopaedic Surgery | DX: M54.9 Dorsalgia, unspecified (principal); Z98.1 Arthrodesis status | CPT/HCPCS: 72072; 99213 ==

== ENCOUNTER → 2024-08-26 09:20 | Outpatient (BNVA) | payer MEDICARE, SELFPAY | PROVIDERS: PCP Family Medicine; Visit Provider Nurse Practitioner Family | DX: I78.8 Other diseases of capillaries (principal); L81.4 Other melanin hyperpigmentation; L57.8 Other skin changes due to chronic exposure to nonionizing radiation; D48.5 Neoplasm of uncertain behavior of skin; L57.0 Actinic keratosis | CPT/HCPCS: 11102; 17000; 99213 ==

== ENCOUNTER 2024-09-05 10:48 | Outpatient (CLI) | payer MEDICARE, SELFPAY ==
--- NOTE | 2024-09-05 10:42 | PETR_ITS ---
PROCEDURE INFORMATION: Exam: PET/CT Skull Base to Mid-thigh Exam date and time: 09/05/2024 12:03 PM Age: 68 years old Clinical indication: Condition or disease; Primary cancer: Thyroid cancer; Initial oncological staging assessment; Prior surgery; Surgery date: 6+ months; Surgery type: Throat, dental implants; Additional info: Malignant neoplasm thyroid LABS AND CLINICAL REPORTS: Glucose: 95 mg/dl Treatment strategy for malignancy (PET staging): Initial Staging (PI) TECHNIQUE: Imaging protocol: Following at least four-hour fasting and following the injection of radiopharmaceutical, low dose CT images were obtained. Then, PET images were obtained. Attenuation corrected images were constructed using the CT scan. Fused images of PET and CT were reviewed. The standardized uptake values (SUV) reported below are maximum values within a region of interest, expressed in gm/ml. Exam includes orbital meatal line to mid-thigh. SUV normalization method: BodyWeight Radiopharmaceutical: 10.45 mCi F-18 FDG (Fluorodeoxyglucose), IV. Time of imaging post radiopharmaceutical administration: 46 minutes Injection site: right ac COMPARISON: 1. US soft tissue head neck [id number] 07/17/2024 8:[address] neck w con* [id number] 08/13/2024 10:[address] chest wo con [id number] 02/19/2019 1:23 PM 4. CR XR thoracic spine 3V* [id number] 08/19/2024 7:57 AM FINDINGS: Brain: Visualized brain has normal physiologic uptake. Pharynx: Asymmetric lateral left oropharyngeal FDG uptake shows SUV max 6.1 on axial image 307 with possible slight asymmetric soft tissue fullness (SUV max 3.4 on the right). Larynx: No abnormal uptake. Thyroid: Subcentimeter calcified right thyroid nodule without FDG avidity, axial image 277. Lungs, pleura and trachea: No abnormal uptake. Mild upper lung predominant emphysematous change. Mild dependent atelectasis. No consolidation or mass. Stable non FDG avid 3 mm intrapulmonary lymph node along the right minor fissure on axial image 227. No pleural effusion. Heart: Normal physiologic uptake. Coronary arteries: Moderate coronary artery calcification. Mediastinal space: No abnormal uptake. Liver: No abnormal uptake. Gallbladder and biliary ducts: No abnormal uptake. Pancreas: No abnormal uptake. Spleen: No abnormal uptake. Adrenal glands: No abnormal uptake. Kidneys and ureters: Normal physiologic uptake. Stomach and bowel: No abnormal uptake. Colonic diverticulosis without findings of diverticulitis. Reproductive: The uterus is surgically absent. Vasculature: No abnormal uptake. Moderate systemic atherosclerotic calcification without aortic aneurysm. Lymph nodes: FDG avid enlarged left level 1B and 2 cervical lymph nodes with index level 2 node measuring 2.1 x 1.6 cm on axial image 302 showing SUV max 11.5. Nonenlarged metabolically active bilateral axillary lymph nodes, index right axillary node measuring 0.6 cm in the short axis on axial image 252 with SUV max 3.7 and index left axillary node measuring 0.7 cm in the short axis on axial image 254 with SUV max 4.4. Skeleton: Focal FDG uptake at anterior left humeral head just lateral to bicipital groove shows 3 mm underlying nonaggressive lucency on axial image 276 with SUV max 5.5. Augmented T7 vertebral body. Degenerative change along the spine and sacroiliac joints. Soft tissues: No abnormal uptake in the visualized head, neck, chest, abdomen, pelvis, and extremities. METRICS: Mediastinal blood pool: SUV max 2.2 Liver uptake: SUV mean 2.5 PET/PET skull to thigh INIT [id number] IMPRESSION: 1. FDG avid left cervical lymphadenopathy likely represents metastatic disease. 2. Asymmetric lateral left oropharyngeal FDG uptake with possible slight asymmetric soft tissue fullness, correlate with ENT evaluation. 3. Non FDG avid subcentimeter calcified right thyroid nodule. No FDG avid nodule. 4. Metabolically active nonenlarged bilateral axillary lymph nodes, nonspecific. 5. Focal FDG uptake at anterior left humeral head just lateral to bicipital groove with 3 mm underlying nonaggressive lucency is likely inflammatory, neoplastic thought unlikely.
== END 2024-09-05 10:49 | disposition home or self-care (01) ==
LOC: RAD 10:48
PROVIDERS: PCP Family Medicine; Visit Provider Specialist
DX: C73 Malignant neoplasm of thyroid gland (principal); R59.0 Localized enlarged lymph nodes; R93.0 Abnormal findings on diagnostic imaging of skull and head, not elsewhere classified; E04.1 Nontoxic single thyroid nodule; R91.8 Other nonspecific abnormal finding of lung field; J98.11 Atelectasis; I25.10 Atherosclerotic heart disease of native coronary artery without angina pectoris; K57.30 Diverticulosis of large intestine without perforation or abscess without bleeding; Z98.890 Other specified postprocedural states; R93.7 Abnormal findings on diagnostic imaging of other parts of musculoskeletal system
CPT/HCPCS: 78815; A9552

== ENCOUNTER → 2024-12-01 13:15 | Outpatient (BNVA) | payer MEDICARE, SELFPAY | PROVIDERS: PCP Family Medicine; Visit Provider Internal Medicine Medical Oncology | DX: Z53.9 Procedure and treatment not carried out, unspecified reason (principal) | CPT/HCPCS: 77300; 77301; 77338; 99205 ==

== ENCOUNTER 2024-12-01 14:00 | Oncology outpatient (recurring) (ONCR) | payer MEDICARE, SELFPAY ==
--- NOTE | 2024-11-26 12:50 | N.ONRAD NP_ITS ---
Radiation Oncology New Patient Visit Patient: Heidi Shafer MR#: [id number] : 1955 Age: 68 Sex: Female Dictated by: Dr. Mukund Anderson Date of Service: 11/25/2024 Referring Physician(s) : Dr. 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 s/p bxs 09/17 and resection 10/28/2024. Here to address post operative treatment. Radiotherapy to date: Summary > No prior radiation therapy. Chief Complaint / History of Present Illness: New asymptomatic left neck mass first noted in 05/2024. Trial of antibiotics with no resolution. CT 08/13/[address] FNA left neck LN positive for malignancy by report. PET/CT 09/05/2024 FDG avid cervical adenopathy asymmetric FDG left OP uptake and soft tissue fullness. Bx 09/17/2024 left tonsil at least high grade dysplasia diffuse p 16+ . It was noted to be worrisome for invasive malignancy. 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 Seen at [facility]. Dr Casandra Lemon 10/28/2024 left radical tonsillectomy left partial pharyngectomy and left neck dissection with ligation of left external carotid and facial arteries. Path Left tonsil no residual malignancy. All separate margins negative. Left neck level II 09/16 involved, largest 3 cm with extra vi extension 2.1 mm (at least) Left neck level IIII negative for malignancy (0/) Left neck level IIB 08/20 involved. 1.1 cm . No extra vi extension. Left neck level IV, negative for malignancy (0) Doing well post op. Pretreatment weight 150 pounds, now 127 pounds. Swallowing improved. Left throat pain improving. Living independently with . Still smoking 1/3 ppd. On Chantix to ultimately stop smoking. Current Medications: alendronate 70 mg PO DIRECTED cholecalciferol (vitamin D3) 125 mcg PO DAILY clobetasol 0.05% 1 applic topical BID 2 weeks [Custom Fabricated Splint As directed] hydrocodone-acetaminophen 5-325 mg 1 - 2 tabs PO .Q4-6H magnesium oxide 400 mg PO DAILY meclizine 25 mg PO DAILY PRN meloxicam 15 mg PO DAILY simvastatin 40 mg PO DAILY sulfasalazine 1,000 mg PO BID tizanidine 4 mg PO TID PRN Allergies: No Known Drug Allergies Medical History: No history of collagen vascular disease. No previous radiation therapy. Lung nodule TIA (transient ischemic attack) Arthritis Hypercholesteremia Surgical History: History of throat surgery Family History: Not obtained. Social History: Re- recently 09/2024. 2 step children from prior marriage and now 2 additional step children. Smoking from age 12 to current age 68 now smoking 1/3 ppd.. 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 Smoking and tobacco/nicotine status: current every day tobacco/nicotine user Current Complaints / Review of Systems: . Vital Signs: Performed on 11/25/2024 1:07 PM BMI - 21.937 kg/m2, Height - 64 in, Weight - 127.8 lbs, Temperature - 97.5 f, Pulse - 88 /min, Respiration - 17 /min, O2 Sat - 97 %, Pain - 0, Fatigue - 0 and BP - 121/ 75 mm(hg). Physical Exam: Pleasant in NAD. Left neck incision well healed. No cervical adenopathy. Oral cavity healed left tonsillar site with blanched mucosa. Dentures in otherwise edentulous. Performance Status: ECOG PS 0 - 1 Pathology: see above Lab: none Imaging: See HPI Impression: Resected clinical st I(T1, N1, M0) and path st I (T0, N1, M0) p16 positive squamous cell carcinoma of the left tonsil s/p resection. No residual primary disease was seen at resection. Additional primary site margins were also negative. Primary risk factors are multiple (3) lymph nodes involved with extra capsular extension noted on largest resected lymph node. Plan: Recommend adjuvant left neck radiation to 50 to 60 Gy in 5 to 6 weeks. Role of chemo is not as clear. Await med once al for this. I do not see benefit to including primary tonsillar site as it was well resected. Signed by: 11/26/2024 12:49:07 PM <<Signature on File>> Time spent with patient: 60 minutes reviewing clinical data and discussion with patient and spouse. CPT Code: * CPT Code: *
== END 2024-12-03 23:59 | disposition home or self-care (01) ==
PROVIDERS: PCP Family Medicine; Visit Provider Radiology Radiation Oncology
DX: Z53.9 Procedure and treatment not carried out, unspecified reason (principal); Z51.0 Encounter for antineoplastic radiation therapy; C09.9 Malignant neoplasm of tonsil, unspecified; C76.0 Malignant neoplasm of head, face and neck
CPT/HCPCS: 77334; 77470; 99024; 99205

== ENCOUNTER 2024-12-26 08:17 | Oncology outpatient (recurring) (ONCR) | payer MEDICARE, SELFPAY ==
--- NOTE | 2024-12-08 09:33 | ONCRAD TMN_ITS ---
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 ID: [id number], Energy: 6X, Dose/Fx (cGy): 200, #Fx: , Dose Correction (cGy): 0, Total Dose Delivered (cGy): 200, Start Date: 12/08/2024, Elapsed Days: 0 Reason for visit: The patient is being seen today as part of their regularly scheduled weekly on treatment visits to assess for acute toxicities from radiotherapy. 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 She is not going to have chemotherapy at the recommendation of Dr. Best. We will get starting labs today. She does not have a feeding tube. She gained 4 pounds over the weekend. She has been hoarse since the multiple surgeries she has had here and in [place]. Vital Signs: Performed on 12/08/2024 8:42 AM BMI - 22.521 kg/m2, Height - 64 in, Weight - 131.2 lbs, Temperature - 97 f, Pulse - 67 /min, Respiration - 16 /min, O2 Sat - 95 % (low), Pain - 0, Fatigue - 0 and BP - 127/ 89 mm(hg). Physical Exam: Alert and oriented and answers questions appropriately. Skin intact. No mucositis noted. Imaging: Radiation therapy imaging related to accurate target localization (i.e. KV, MV and CBCT) was reviewed. Appropriate changes, if any, were made to ensure treatment accuracy. Plan: Continue XRT Get Aquaphor spray Continue MMW Signed by: Nilay Womack 12/08/2024 9:31:39 AM
[2024-12-08 09:44] LABS: Basophils % 0.3 %; Eosinophils # 0.1 10^3/uL (0.0-0.8); Eosinophils % 1.5 %; Lymphocytes % 28.4 %; Mean Corpuscular HGB Conc 32.9 g/dL (30-55); Mean Corpuscular Hemoglobin 31.2 pg (27-33); Mean Corpuscular Volume 94.8 fl (85-98); Mean Platelet Volume 9.9 fL (7.4-10.4); Monocytes # 0.3 10^3/uL (0.2-0.9); Monocytes % 8.4 %; Neutrophils # 2.04 10^3/uL (1.8-7.7); Neutrophils % 61.1 %; Nucleated Red Blood Cells % 0 %; Platelet Count 164 10^3/cmm (157-399); Red Blood Count 4.01 10^6/uL (3.85-5.65); Red Cell Distribution Width 13.6 % (12.1-15.1); White Blood Count 3.34 10^3/uL (3.29-11.43)
--- NOTE | 2024-12-16 08:58 | ONCRAD TMN_ITS ---
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 ID: [id number], Energy: 6X, Dose/Fx (cGy): 200, #Fx: , Dose Correction (cGy): 0, Total Dose Delivered (cGy): 1,400, Start Date: 12/08/2024, Elapsed Days: 8 Reason for visit: The patient is being seen today as part of their regularly scheduled weekly on treatment visits to assess for acute toxicities from radiotherapy. Review of Systems: Patient's weight is 129 losing 2 pounds since last visit. She looks very healthy she is eating large amounts of food. Her Magic mouthwash is still being used but still has pain. Will use some liquid [place] and called into [facility] locally Vital Signs: Performed on 12/16/2024 8:37 AM BMI - 22.212 kg/m2, Height - 64 in, Weight - 129.4 lbs, Temperature - 97.0 f, Pulse - 92 /min, Respiration - 16 /min, O2 Sat - 96 %, Pain - 4, Fatigue - 0 and BP - 118/ 75 mm(hg). Physical Exam: AAOx3. Skin intact. No mucositis Imaging: Radiation therapy imaging related to accurate target localization (i.e. KV, MV and CBCT) was reviewed. Appropriate changes, if any, were made to ensure treatment accuracy. Plan: Continue XRT Obtain liquid [place] 5 at local [facility]. Signed by: Nilay Womack 12/16/2024 8:57:16 AM
--- NOTE | 2024-12-22 09:32 | ONCRAD TMN_ITS ---
Radiation Oncology Weekly Treatment Management Patient: Heidi Shafer MR#: [id number] : 1955 Attending Physician: Dr. 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 ID: [id number], Energy: 6X, Dose/Fx (cGy): 200, #Fx: , Dose Correction (cGy): 0, Total Dose Delivered (cGy): 2,200, Start Date: 12/08/2024, Elapsed Days: 14 Reason for visit: The patient is being seen today as part of their regularly scheduled weekly on treatment visits to assess for acute toxicities from radiotherapy. Review of Systems: She notes ongoing left neck swelling. Using magic mouth wash but no oral narcotics. Using APA up to 1000 mg 4 x a day. Only 3 stools since surgery 10/28/2024. She has used stool softener and ExLax with no results. She continues to smoke. Vital Signs: Performed on 12/22/2024 8:34 AM BMI - 22.452 kg/m2, Height - 64 in, Weight - 130.8 lbs, Temperature - 96.3 f, Pulse - 73 /min, Respiration - 17 /min, O2 Sat - 96 %, Pain - 4, Fatigue - 0 and BP - 146/ 75 mm(hg)(high/). Physical Exam: Left neck well healed with fullness c/w lymphedema. Imaging: Radiation therapy imaging related to accurate target localization (i.e. KV, MV and CBCT) was reviewed. Appropriate changes, if any, were made to ensure treatment accuracy. Plan: Continue treatment. Discussed adding Mg Citrate, Mirilax and Fleets enema. Also discussed need to quit smoking. Signed by: Dr. Mukund Anderson 12/22/2024 9:29:39 AM
== END 2024-12-26 23:59 | disposition home or self-care (01) ==
PROVIDERS: Radiology Radiation Oncology; PCP Family Medicine; Visit Provider Radiology Radiation Oncology
DX: Z51.0 Encounter for antineoplastic radiation therapy (principal); C09.9 Malignant neoplasm of tonsil, unspecified; C76.0 Malignant neoplasm of head, face and neck; Z53.9 Procedure and treatment not carried out, unspecified reason
CPT/HCPCS: 36415; 77336; 77386; 85025; 99024

== ENCOUNTER 2025-01-02 08:16 | Oncology outpatient (recurring) (ONCR) | payer MEDICARE, SELFPAY ==
--- NOTE | 2024-12-30 08:54 | ONCRAD TMN_ITS ---
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 56Gy, Ref. ID: [id number], Energy: 6X, Dose/Fx (cGy): 200, #Fx: 16 / 28, Dose Correction (cGy): 0, Total Dose Delivered (cGy): 3,200, Start Date: 12/08/2024, Elapsed Days: 22 Reason for visit: The patient is being seen today as part of their regularly scheduled weekly on treatment visits to assess for acute toxicities from radiotherapy. Review of Systems: Patient states pain is slightly better. She continues to use Aquaphor spray. She is mildly constipated but taking meds for it she also is using MMW with good response. Weight is stable at 129. Vital Signs: Performed on 12/30/2024 8:43 AM BMI - 22.177 kg/m2, Height - 64 in, Weight - 129.2 lbs, Temperature - 96.5 f, Pulse - 85 /min, Respiration - 17 /min, O2 Sat - 96 %, Pain - 4, Fatigue - 0 and BP - 127/ 72 mm(hg). Physical Exam: AAOx3. Skin mildly erythematous but no breakdown. Imaging: Radiation therapy imaging related to accurate target localization (i.e. KV, MV and CBCT) was reviewed. Appropriate changes, if any, were made to ensure treatment accuracy. Plan: Continue XRT Continue Aquaphor spray Signed by: Nilay Womack 12/30/2024 8:52:56 AM
== END 2025-01-03 23:59 | disposition home or self-care (01) ==
PROVIDERS: PCP Family Medicine; Visit Provider Radiology Radiation Oncology
DX: Z51.0 Encounter for antineoplastic radiation therapy (principal); C09.9 Malignant neoplasm of tonsil, unspecified; C77.0 Secondary and unspecified malignant neoplasm of lymph nodes of head, face and neck
CPT/HCPCS: 77336; 77386; 99024

== ENCOUNTER 2025-01-15 08:20 | Oncology outpatient (recurring) (ONCR) | payer MEDICARE, SELFPAY ==
--- NOTE | 2025-01-06 09:04 | ONCRAD TMN_ITS ---
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 ID: [id number], Energy: 6X, Dose/Fx (cGy): 200, #Fx: , Dose Correction (cGy): 0, Total Dose Delivered (cGy): 4,200 ,Start Date: 12/08/2024, Elapsed Days: 29 Reason for visit: The patient is being seen today as part of their regularly scheduled weekly on treatment visits to assess for acute toxicities from radiotherapy. Review of Systems: No voice complaints. She is eating well. She will finish next week. She continues MMW. Down 1 pound since last visit. Vital Signs: Performed on 01/06/2025 8:33 AM BMI - 21.971 kg/m2, Height - 64 in, Weight - 128 lbs, Temperature - 96.5 f, Pulse - 98 /min, Respiration - 17 /min, O2 Sat - 95 % (low), Pain - 6, Fatigue - 0 and BP - 115/ 74 mm(hg). Physical Exam: AAOx3. Skin intact. No Oral Mucositis Imaging: Radiation therapy imaging related to accurate target localization (i.e. KV, MV and CBCT) was reviewed. Appropriate changes, if any, were made to ensure treatment accuracy. Plan: Cont XRT Signed by: Nilay Womack 01/06/2025 9:02:21 AM
--- NOTE | 2025-01-13 09:09 | ONCRAD TMN_ITS ---
Radiation Oncology Weekly Treatment Management Patient: Hollis Calderon MR#: [id number] : 1955> Attending Physician: Dr. 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 ID: [id number], Energy: 6X, Dose/Fx (cGy): 200, #Fx: , Dose Correction (cGy): 0, Total Dose Delivered (cGy): 5,200, Start Date: 12/08/2024, Elapsed Days: 36 Reason for visit: The patient is being seen today as part of their regularly scheduled weekly on treatment visits to assess for acute toxicities from radiotherapy. Review of Systems: Ongoing sor thrat. Gargling with salt and soda. Using topical Aquaphor. Has adequate pain meds. Still smoking some. Vital Signs: Performed on 01/13/2025 8:51 AM BMI - 21.628 kg/m2, Height - 64 in, Weight - 126 lbs, Temperature - 96.7 f, Pulse - 72 /min, Respiration - 18 /min, O2 Sat - 92 % (low), Pain - 6, Fatigue - 10 and BP - 112/ 68 mm(hg). Physical Exam: Erythema of left neck and supraclav. Mucousitis over left soft palate and tonsillar region Imaging: Radiation therapy imaging related to accurate target localization (i.e. KV, MV and CBCT) was reviewed. Appropriate changes, if any, were made to ensure treatment accuracy. Plan: Good tolerance of treatment. Continue as planned. Begged her to quit smoking. Signed by: Dr. Mukund Anderson 01/13/2025 9:08:22 AM
--- NOTE | 2025-01-15 12:40 | N.ONRD TS_ITS ---
Radiation Oncology Treatment Summary Patient: Heidi Garcia MR#: [id number] : 1955 Age: 69 Sex: Female Dictated by: Dr. 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 ID: [id number], Energy: 6X, Dose/Fx (cGy): 200, #Fx: / , Dose Correction (cGy): 0, Total Dose Delivered (cGy): 5,600, Start Date: 12/08/2024, End Date: 01/15/2025, Elapsed Days: 38 Clinical Summary: The patient tolerated RT well. Plan: End of treatment today. Continue on the above medication until the skin reaction resolves. Follow up in one month. Signed by: Dr. Mukund Anderson>01/15/2025 12:38:49 PM <<Signature on File>>
== END 2025-02-02 23:59 | disposition home or self-care (01) ==
PROVIDERS: PCP Family Medicine; Visit Provider Radiology Radiation Oncology
DX: Z51.0 Encounter for antineoplastic radiation therapy (principal); C09.9 Malignant neoplasm of tonsil, unspecified; C77.0 Secondary and unspecified malignant neoplasm of lymph nodes of head, face and neck
CPT/HCPCS: 77336; 77386; 99024

== ENCOUNTER 2025-02-13 09:38 | Outpatient (CLI) | payer MEDICARE, SELFPAY ==
--- NOTE | 2025-02-13 09:43 | CTR_ITS ---
PROCEDURE INFORMATION: Exam: CT Neck With Contrast Exam date and time: 02/13/2025 10:29 AM Age: 69 years old Clinical indication: Condition or disease; Cancer; Other: Malignant neoplasm of overlapping sites of tonsil; Prior surgery; Surgery date: 6+ months; Surgery type: Tonsils, lymphnodes surrounding TECHNIQUE: Imaging protocol: Computed tomography of the neck with contrast. Radiation optimization: All CT scans at this facility use at least one of these dose optimization techniques: automated exposure control; mA and/or kV adjustment per patient size (includes targeted exams where dose is matched to clinical indication); or iterative reconstruction. Contrast material: OMNI 350; Contrast volume: 80 ml; Contrast route: INTRAVENOUS (IV); COMPARISON: 1. CT neck w con* [id number] 08/13/2024 10:04 AM 2. PT PET skull to thigh INIT [id number] 09/05/2024 12:03 PM RADIATION DOSE METRICS: Total DLP (mGy-cm): 218.62 FINDINGS: Brain: The visible portion of the brain is normal. Mastoid air cells: There is sclerosis of the inferior left mastoid air cells. Salivary glands: The parotid glands are normal. The submandibular glands are normal. Pharynx: The nasopharynx is unremarkable. There is no significant pharyngeal tonsillar enlargement. The oropharynx is unremarkable. There is no significant palatine tonsillar enlargement. The hypopharynx is unremarkable. There is no significant lingual tonsillar enlargement. Larynx: The larynx and epiglottis are normal. Thyroid: The thyroid gland is unremarkable. Trachea: The visible portion of the trachea is normal. Lungs: There is moderate centrilobular emphysema in the lung apices. Lymph nodes: There has been interval resolution of lymph node enlargement in the left jugular chain since 08/13/2024. No lymph node enlargement on the right. Vasculature: There is mild atherosclerotic disease of the carotid arteries bilaterally. Internal jugular veins are patent. Vertebral arteries are patent. Bones/joints: There is mild diffuse cervical disc and facet degeneration. Soft tissues: Mild asymmetric edema in the left jugular space associated with surgical clips suggesting surgical and/or radiation changes. There is no fluid collection. CT/CT neck w con* [id number] IMPRESSION: Interval lymph node resection in the left upper neck since 09/05/2024. No recurrent lymphadenopathy.
[2025-02-13 10:47] LABS: Blood Urea Nitrogen 13 mg/dL (8-23)
[2025-02-13] MEDS: iohexol 350 mg/mL 500 mL Btl (per mL) IV (10:48)
== END 2025-02-13 09:39 | disposition home or self-care (01) ==
LOC: RAD 09:40
PROVIDERS: PCP Family Medicine; Visit Provider Specialist
DX: C09.8 Malignant neoplasm of overlapping sites of tonsil (principal); H70.12 Chronic mastoiditis, left ear; J43.2 Centrilobular emphysema; R59.0 Localized enlarged lymph nodes; I65.23 Occlusion and stenosis of bilateral carotid arteries; M50.30 Other cervical disc degeneration, unspecified cervical region; R60.0 Localized edema; Z96.89 Presence of other specified functional implants
CPT/HCPCS: 70491; 82565; 84520

== ENCOUNTER 2025-03-02 12:00 | Oncology outpatient (recurring) (ONCR) | payer MEDICARE, SELFPAY ==
--- NOTE | 2025-02-23 09:42 | ONCRAD EPV_ITS ---
Radiation Oncology Established Patient Visit Patient: Hollis Gordon [id number] : 1955> Age: 69> Sex: Female> Dictated by: Nilay Womack Date of Service: 02/23/2025 Referring Physician(s) : Dr. 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 ID: [id number], Energy: 6X, Dose/Fx (cGy): 200, #Fx: , Dose Correction (cGy): 0, Total Dose Delivered (cGy): 5,600, Start Date: 12/08/2024, End Date: 01/15/2025, Elapsed Days: 38 Current History: This is a pleasant 69-year-old female who is now 5.2 weeks adjuvant XRT for left tonsillar carcinoma. She had a level 2 3 out of 24 lymph nodes positive with extracapsular extension. Level 3 and 4 0 out of 54 lymph nodes positive. Patient swallowing without difficulty. She does desire of further refills of Magic mouthwash. She receives her Rx at [facility]. CT H/N on 02/13/2025 showed no evidence for recurrence. We will obtain PET/CT before her next follow-up which will be 3 months from now. She does not wish to quit smoking. Current Medications: alum-mag hydroxide-simeth 200-200-20 mg/5 mL (Marilia-Lanta) mL PO cholecalciferol (vitamin D3) 125 mcg PO DAILY [Custom Fabricated Splint As directed] hydroxychloroquine mg PO lidocaine HCl 2% 1 applic PO meclizine 25 mg PO DAILY PRN meloxicam 15 mg PO DAILY oxycodone mg PO simvastatin 40 mg PO DAILY sulfasalazine 1,000 mg PO BID tizanidine 4 mg PO TID PRN varenicline tartrate mg PO Allergies: No Known Allergies Current Complaints / Review of Systems: . Vital Signs: Performed on 02/23/2025 8:56 AM BMI - 20.701 kg/m2, Height - 64 in, Weight - 120.6 lbs, Temperature - 97.4 f, Pulse - 94 /min, Respiration - 18 /min, O2 Sat - 93 % (low), Pain - 6, Fatigue - 0 and BP - 120/ 77 mm(hg). Physical Exam: General: Alert and oriented x 3. No acute distress. HEENT: Normocephalic, atraumatic. Extraocular Movements Intact: Pupils Equal, Round, Reactive to Light and Accommodation: Sclerae anicteric. Oral cavity is clear without lesions, masses or ulcers. Mucosa moist NECK: Supple without supraclavicular or jugular lymphadenopathy. LUNGS: Clear to auscultation bilaterally without rales, rhonchi or wheeze. HEART: Regular rate and rhythm, normal S1 and S2 without murmur, gallop or rub. MUSCULOSKELETAL: No tenderness or percussion pain over the axial skeleton, scapulae or pelvis. ABDOMEN: Soft, nontender, nondistended without masses or organomegaly. Bowell sounds are present. EXTREMITIES: No peripheral edema is identified. Limited motor and sensory examination are grossly intact and symmetric bilaterally. NEUROLOGIC: Cranial nerves II ???XII are grossly intact. Normal sensation, strength 5/5 in all extremities, normal gait, no ataxia. Performance Status: KPS 90 Lab: None pending. Pathology: Primary, c09.9 - malignant neoplasm of tonsil, unspecified, Diagnosed 11/26/2024 (active) and Primary, c77.0 - secondary and unspecified malignant neoplasm of lymph nodes of head, face and neck, Diagnosed 11/26/2024 (active) . Imaging: See HPI Impression: Lt Tonsillar CA + Tobacco Abuse- desires not to quit PLAN: RTC in 3 months PET/CT prior to next visit MM W with 3 refills to be sent to [facility] Signed by: 02/23/2025 9:40:54 AM <<Signature on File>> Time spent with patient: 25 minutes. No charge w/in global time. CPT Code: CPT Code:
[2025-03-02 13:14] LABS: Hematocrit 36.4 % (36-47); Hemoglobin 12.00 g/dL (11.27-16.99); Mean Corpuscular HGB Conc 33.0 g/dL (30-55); Mean Corpuscular Hemoglobin 31.0 pg (27-33); Mean Corpuscular Volume 94.1 fl (85-98); Nucleated Red Blood Cells % 0 %; Platelet Count 146 10^3/cmm (157-399); Red Blood Count 3.87 10^6/uL (3.85-5.65); White Blood Count 3.03 10^3/uL (3.29-11.43)
[2025-03-02 13:31] LABS: Alanine Aminotransferase 10 U/L (0-33); Albumin Level 4.2 g/dL (3.5-5.2); Alkaline Phosphatase 47 U/L (35-105); Anion Gap 15.1 (5-19); Aspartate Amino Transferase 17 U/L (0-32); Blood Urea Nitrogen 13 mg/dL (8-23); Calcium 9.6 mg/dL (8.5-10.5); Carbon Dioxide 26 mmol/L (22-29); Chloride 102 mmol/L (98-107); Creatinine Clr Calc Pharmacy 55.5876; Globulin 2.5 g/dL (1.3-4.6); Glucose 85 mg/dL (65-115); Osmolality Calculated 287 mOsm/kg (285-295); Potassium 4.1 mmol/L (3.5-5.1); Sodium 139 mmol/L (136-145); Total Protein 6.7 g/dL (6.6-8.7)
== END 2025-03-05 23:59 | disposition home or self-care (01) ==
PROVIDERS: Internal Medicine Medical Oncology; PCP Family Medicine; Visit Provider Radiology Radiation Oncology
DX: Z53.9 Procedure and treatment not carried out, unspecified reason; C76.0 Malignant neoplasm of head, face and neck; F17.200 Nicotine dependence, unspecified, uncomplicated; R63.4 Abnormal weight loss; Z68.20 Body mass index [BMI] 20.0-20.9, adult; K59.00 Constipation, unspecified
CPT/HCPCS: 36415; 80053; 85025; 99024; 99214

== ENCOUNTER 2025-05-01 10:59 | Outpatient (CLI) | payer MEDICARE, SELFPAY ==
--- NOTE | 2025-05-01 11:06 | PETR_ITS ---
PROCEDURE INFORMATION: Exam: PET/CT Skull Base to Mid-thigh Exam date and time: 05/01/2025 12:02 PM Age: 69 years old Clinical indication: Symptoms: Head and neck malignancy; Malignant neoplasm of head, face and neck; Additional info: C76.0 - malignant neoplasm of head, face and neck, please schedule on 05-22-25 LABS AND CLINICAL REPORTS: Glucose: 116 mg/dl Treatment strategy for malignancy (PET staging): Restaging (PS) TECHNIQUE: Imaging protocol: Following at least four-hour fasting and following the injection of radiopharmaceutical, low dose CT images were obtained. Then, PET images were obtained. Attenuation corrected images were constructed using the CT scan. Fused images of PET and CT were reviewed. The standardized uptake values (SUV) reported below are maximum values within a region of interest, expressed in gm/ml. Exam includes orbital meatal line to mid-thigh. SUV normalization method: BodyWeight Radiopharmaceutical: 10.6 mCi F-18 FDG (Fluorodeoxyglucose), IV. Time of imaging post radiopharmaceutical administration: 43 minutes Injection site: LAC COMPARISON: 1. CT neck w con* [id number] 02/13/2025 10:29 AM 2. PT PET skull to thigh INIT [id number] 09/05/2024 12:03 PM FINDINGS: Brain: Visualized brain has normal physiologic uptake. Pharynx: Previous asymmetric lateral left oropharyngeal FDG uptake has resolved. Developed mild asymmetric lower left pharyngeal soft tissue fullness with SUV max 3.2 on axial image 73 with associated effacement of the left vallecula. Larynx: Symmetric FDG uptake without underlying CT abnormality is likely benign. Thyroid: Stable subcentimeter calcified right thyroid nodule without FDG avidity. Lungs, pleura and trachea: No abnormal uptake. Mild upper lung predominant emphysematous change. Mild dependent atelectasis. No consolidation or mass. Stable non FDG avid 3 mm intrapulmonary lymph node along the right minor fissure on axial image 145. No pleural effusion. Heart: Normal physiologic uptake. Coronary arteries: Moderate coronary artery calcification. Mediastinal space: No abnormal uptake. Liver: No abnormal uptake. Gallbladder and biliary ducts: No abnormal uptake. Pancreas: No abnormal uptake. Spleen: No abnormal uptake. Adrenal glands: No abnormal uptake. Kidneys and ureters: Normal physiologic uptake. Stomach and bowel: Long segment FDG uptake along the hepatic flexure and proximal transverse colon is likely benign physiologic or inflammatory. Reproductive: The uterus is surgically absent. Vasculature: No abnormal uptake. Moderate systemic atherosclerotic calcification without aortic aneurysm. Lymph nodes: Left neck dissection with resolved FDG avid cervical lymphadenopathy and diffuse very low-level left neck FDG uptake compatible with posttreatment change. Skeleton: Subacute healing anterolateral right 5th rib fracture with associated sclerosis and low-level FDG uptake. Degenerative change along the spine and sacroiliac joints. Augmented T7 vertebral body. Soft tissues: Linear FDG uptake at left lower neck musculature without underlying CT abnormality is likely physiologic activation or strain. METRICS: Mediastinal blood pool: SUV max 1.7 Liver uptake: SUV mean 2.3 PET/PET skull to thigh SUBS [id number] IMPRESSION: 1. Left neck dissection with resolved FDG-avid lymphadenopathy and diffuse very low-level left neck FDG uptake compatible with posttreatment change. 2. Resolved asymmetric lateral left oropharyngeal FDG uptake. 3. Developed mildly FDG avid asymmetric left lower pharyngeal soft tissue fullness with effacement of the left vallecula. Favor posttreatment inflammatory change, malignancy thought unlikely but difficult to entirely exclude. 4. Subacute healing anterolateral right 5th rib fracture. 5. Additional chronic and incidental findings as above.
== END 2025-05-01 11:00 | disposition home or self-care (01) ==
LOC: RAD 11:01
PROVIDERS: PCP Family Medicine; Visit Provider Specialist
DX: C76.0 Malignant neoplasm of head, face and neck (principal)
CPT/HCPCS: 78815; A9552

== ENCOUNTER 2025-05-07 09:21 | Oncology outpatient (recurring) (ONCR) | payer MEDICARE, SELFPAY ==
--- NOTE | 2025-05-07 09:58 | ONCRAD EPV_ITS ---
Radiation Oncology Established Patient Visit Patient: Heidi Shafer [id number] : 1955 Age: 69 Sex: Female Dictated by: Dr. 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 She is here today for her 3-month check. Her PET scan did not reveal any evidence of recurrent disease. I gave her a copy of this. She continues to have trouble swallowing. She has tenderness through the neck area. Her mouth dryness and taste remains stable. 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 [place] 56Gy, Ref. ID: [id number], Energy: 6X, Dose/Fx (cGy): 200, #Fx: 28 / 28, Dose Correction (cGy): 0, Total Dose Delivered (cGy): 5,600, Start Date: 12/08/2024, End Date: 01/15/2025, Elapsed Days: 38, Current History: Current Medications: Allergies: No Known Allergies Current Complaints / Review of Systems: . Vital Signs: Performed on 05/07/2025 9:40 AM BMI - 21.731 kg/m2, Height - 64 in, Weight - 126.6 lbs, Temperature - 97 f, Pulse - 77 /min, Respiration - 17 /min, O2 Sat - 94 % (low), Pain - 0, Fatigue - 0 and BP - 129/ 77 mm(hg). Physical Exam: General: Alert and oriented x 3. No acute distress. HEENT: Normocephalic, atraumatic. Extraocular Movements Intact: Pupils Equal, Round, Reactive to Light and Accommodation: Sclerae anicteric. Oral cavity is clear without lesions, masses or ulcers. NECK: Supple without supraclavicular or jugular lymphadenopathy. LUNGS: Respiratory rate is regular nonlabored. HEART: Regular rate and rhythm. ABDOMEN: Fairly flat with minimal adipose tissue EXTREMITIES: No peripheral edema is identified. NEUROLOGIC: Alert and orient x 3. Gait speech within normal limits. Performance Status: 90 Lab: None pending. Pathology: Primary, c09.9 - malignant neoplasm of tonsil, unspecified, Diagnosed 11/26/2024 (active) and Primary, c77.0 - secondary and unspecified malignant neoplasm of lymph nodes of head, face and neck, Diagnosed 11/26/2024 (active) . 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 The tenderness she is experiencing in the submental area as well as the supraclavicular areas related to lymphatic congestion. This also is causing her to have some difficulty swallowing as well because the tissues are being pushed posteriorly making the access to the esophagus tighter. I reviewed with her the techniques to use for manual lymphatic drainage. I have asked her to do these exercises 3 times a day. I reviewed her PET scan and gave her a copy. She will have an appointment with her surgeon next week and also with Dr. Aguilar at the end of the month. I also gave her samples of XyliMelts and asked her to use these at night for her dry mouth. Will otherwise see her back in 6 months or she will call if any problems arise in the interim Signed by: 05/07/2025 9:57:28 AM <<Signature on File>> Time spent with patient: 45 CPT Code: CPT Code:
== END 2025-06-05 23:59 | disposition home or self-care (01) ==
PROVIDERS: PCP Family Medicine; Visit Provider Radiology Radiation Oncology
DX: Z53.9 Procedure and treatment not carried out, unspecified reason (principal); C76.0 Malignant neoplasm of head, face and neck; F17.200 Nicotine dependence, unspecified, uncomplicated; R63.4 Abnormal weight loss; Z68.20 Body mass index [BMI] 20.0-20.9, adult; K59.00 Constipation, unspecified; Z51.0 Encounter for antineoplastic radiation therapy; C09.9 Malignant neoplasm of tonsil, unspecified
CPT/HCPCS: 99215